=== PATIENT | male | born 1965 | race Caucasian/White ===

== ENCOUNTER → 2017-01-02 | Outpatient (CLI) | payer BC ==
[~2017-01-02] MED LIST: OPTIRAY 320 IV PRN; PATIENT'S ALLERGY INFO NEEDS ENTERED SCH
--- NOTE | 2017-01-02 08:24 | DIAGNOSTIC IMAGING REPORT ---
CT SOFT TISSUE NECK WITH CT DOSE: 314.47 mGy.cm CLINICAL HISTORY: R22.1 palpable left inframandibular mass. TECHNIQUE: Helical images were acquired during intravenous administration of 92 cc of Optiray 320. A dose lowering technique was utilized adhering to the principles of ALARA. COMPARISON STUDY: None. FINDINGS: The visualized portions of the lung apices are unremarkable. There is a 2 mm right lobe thyroid nodule. No salivary gland masses are visualized. There are no pathologically enlarged cervical lymph nodes. No necrotic nodes are evident. Subjacent to a left neck marker is a 4 x 3 mm nodule, likely representing a lymph node. This is not enlarged. There are no fluid collections suspicious for abscess. There is no evidence of airway compromise. No mucosal space masses are visualized. IMPRESSION: 1. 2 mm right lobe thyroid nodule 2. No evidence of pathologic adenopathy. No pathologic neck masses identified. 3. In the left neck, in the area of palpable concern, subjacent to the radiopaque marker, there is a 4 x 3 mm nodule, likely representing a lymph node. This is not enlarged. Electronically signed by: Shayan Lowery M.D. 01/02/2017 8:23 AM Dictated Date/Time: 01/02/2017 8:07 AM
== END | disposition home or self-care (01) ==
LOC: C.CTS 07:46
DX: R22.1 Localized swelling, mass and lump, neck (principal); E04.1 Nontoxic single thyroid nodule